=== PATIENT | male | born 1980 | race Caucasian/White ===

== ENCOUNTER → 2021-03-12 10:42 | Outpatient (CLI) | payer OTHER, SELFPAY ==
--- NOTE | 2021-03-12 10:44 | DI.RAD.S_ITS ---
PROCEDURE: XR FOOT RT MIN 3V INDICATIONS: Stepped on nail TECHNIQUE: 3 views of the foot were acquired. COMPARISON: None. FINDINGS: Bones: No fractures or dislocations. No suspicious bony lesions. Midfoot osteoarthritis. Soft tissues: No tibiotalar joint effusion. Achilles tendon appears normal. No radiodense foreign body. IMPRESSION: No fracture. No acute osseous lesion. If symptoms and/or clinical suspicion for pathology persists, further assessment with repeat radiographs (7-10 days) or advanced imaging (e.g. CT, MRI or bone scan) should be considered. Dictated by: Ame Pedroza MD, PhD on 03/12/2021 at 9:57 Approved by: Ame Pedroza MD, PhD on 03/12/2021 at 9:58
== END ==
PROVIDERS: PCP Registered Nurse; Referring Provider Nurse Practitioner Family; Visit Provider Nurse Practitioner Family
DX: S99.921A Unspecified injury of right foot, initial encounter (principal); W45.0XXA Nail entering through skin, initial encounter
CPT/HCPCS: 73630

== ENCOUNTER → 2021-10-30 09:51 | Outpatient (CLI) | payer OTHER, SELFPAY ==
[2021-10-30 11:02] LABS: Add Manual Diff / Slide Review NO; Basophils Absolute Auto 0 /uL (0-100); Basophils Percent Auto 0.5 % (0-2); Eosinophils Absolute Auto 100 /uL (0-450); Eosinophils Percent Auto 1.5 % (2-4); Hematocrit 39.2 % (41-53); Hemoglobin 13.7 g/dL (13.5-17.5); Lymphocytes Absolute Auto 1400 /uL (1100-4500); Mean Corpuscular Hemoglobin 29.6 PG (26-34); Mean Corpuscular Volume 84.6 fL (80-100); Monocytes Absolute Auto 300 /uL (0-900); Monocytes Percent Auto 7.1 % (3-14); Neutrophils Absolute Auto 2700 /uL (1500-7000); Neutrophils Percent Auto 59.9 % (50-75); Platelet Count 168 X10^3/uL (150-400); Red Blood Cell Count 4.64 X10^6/uL (4.5-5.9); Red Cell Distribution Width 12.1 % (11.6-14.8); White Blood Cell Count 4.5 X10^3/uL (4.5-11.0)
[2021-10-30 12:00] LABS: Alanine Aminotransferase 16 IU/L (<50); Albumin 4.4 g/dL (3.5-5.0); Albumin Globulin Ratio 1.6 (1.0-2.8); Alkaline Phosphatase 38 U/L (38-126); Aspartate Aminotransferase 29 IU/L (17-59); Bilirubin Total 0.4 mg/dL (0.2-1.3); Blood Urea Nitrogen 21 mg/dL (9-20); Calcium 8.3 mg/dL (8.4-10.2); Carbon Dioxide 25 mmol/L (22-32); Chloride 106 mmol/L (98-107); Estimated Glomerular Filt Rate > 60 mL/min (>60); Globulin 2.7 g/dL (1.7-4.1); Glucose 96 mg/dL (70-100); HEMOLYSIS < 15 (0-50); Potassium 4.1 mmol/L (3.4-5.1); Sodium 139 mmol/L (137-145); Total Protein 7.1 g/dL (6.3-8.2)
== END ==
PROVIDERS: PCP Family Medicine; Referring Provider Physician Assistant; Visit Provider Physician Assistant
DX: R10.9 Unspecified abdominal pain (principal)
CPT/HCPCS: 36415; 80053; 85025

== ENCOUNTER 2022-10-14 22:18 | Emergency (ER) | payer OTHER, SELFPAY ==
[2022-10-14 22:22] VITALS: BP 119/74; PULSE 69; RESP 16; TEMP 36.4; O2SAT 99; BMI 20.9
--- NOTE | 2022-10-14 22:52 | DI.CT.S_ITS ---
PROCEDURE: CT HEAD/BRAIN WO CON INDICATIONS: syncope TECHNIQUE: Noncontrast 4.5 mm thick angled axial sections acquired from the foramen magnum to the vertex, with coronal and sagittal reformats. For radiation dose reduction, the following was used: automated exposure control, adjustment of mA and/or kV according to patient size. COMPARISON: None. FINDINGS: Image quality: Excellent. CSF spaces: Basal cisterns are patent. No extra-axial fluid collections. Ventricles are normal in size and shape. Brain: No intracranial hemorrhage, mass, or mass effect. Turner-white matter interface appears preserved. Skull and face: Calvarium and visualized facial bones are intact, without suspicious lesions. Sinuses: Visualized sinuses and mastoids are clear. IMPRESSION: 1. No acute intracranial abnormality. Dictated by: Justin Smart M.D. on 10/14/2022 at 23:15 Approved by: Justin Smart M.D. on 10/14/2022 at 23:16
--- NOTE | 2022-10-14 22:52 | DI.CT.S_ITS ---
PROCEDURE: CT CERVICAL SPINE WO CON INDICATIONS: syncope TECHNIQUE: Noncontrast 3 mm thick sections acquired from the skull base to the T4 level. Sagittal and coronal reformats were then constructed. For radiation dose reduction, the following was used: automated exposure control, adjustment of mA and/or kV according to patient size. COMPARISON: None. FINDINGS: Image quality: Excellent. Bones: No fractures or subluxation. There is straightening of the cervical lordosis. There is mild multilevel degenerative disc disease and uncovertebral joint arthropathy in the lower cervical spine. Visualized superior ribs are intact. Soft tissues: Prevertebral soft tissues are normal in thickness. No paravertebral hematomas. No apical pneumothoraces. IMPRESSION: 1. No acute fracture or subluxation. Dictated by: Justin Smart M.D. on 10/14/2022 at 23:17 Approved by: Justin Smart M.D. on 10/14/2022 at 23:18
[2022-10-14 22:57] VITALS: BP 119/72; PULSE 67; RESP 20; O2SAT 98
[2022-10-14 23:07] VITALS: PULSE 61; RESP 12; O2SAT 100
[2022-10-14 23:30] VITALS: PULSE 61; RESP 16; O2SAT 99
[2022-10-14 23:59] VITALS: BP 113/62; PULSE 68; RESP 20; O2SAT 98
[2022-10-15] VITALS: BP 106/55; PULSE 74; RESP 18; O2SAT 99
--- NOTE | 2022-10-15 00:25 | ED_ITS ---
HPI - General Adult General Chief complaint: Syncope Stated complaint: Head inj Time Seen by Provider: 10/15/22 00:24 Source: patient Mode of arrival: Family Vehicle History of Present Illness HPI narrative: 42-year-old gentleman who had a syncopal episode after taking a puff from marijuana vape pen. He fell forward landing on the left side of his forehead on a ceramic doorstop actually breaking the door stop. There was a brief loss of consciousness with retrograde amnesia and increasing fatigue. No actual vomiting. Patient is brought in by his for further evaluation. He complains of mild headache but a time I am talking with him he is at a GCS of 15 and feeling significantly better. He reports no recent fevers, cough, chills. He does note that he has been using and over using marijuana and has been trying to cut back. He has not used any for a number of weeks which is probably why this episode tonight caused the syncope. 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 Mother No problems noted. Social History Smoking Status: Current every day smoker Smoking Status: Current every day smoker Exam Initial Vital Signs Initial Vital Signs: Vital Signs Temperature 97.5 F L 10/14/22 22:22 Pulse Rate 69 10/14/22 22:22 Respiratory Rate 16 10/14/22 22:22 Blood Pressure 119/74 10/14/22 22:22 Pulse Oximetry 99 10/14/22 22:22 Oxygen Delivery Method Room Air 10/14/22 22:22 General: Healthy appearing, mild fatigue. Able to give a complete and coherent history. Well-nourished well-developed HEENT: Moist mucous membranes, normal sclera with reactive pupils, abrasion with contusion to the right forehead with no evidence of skull fracture. Right side of his lip with some minor swelling without actual laceration. Neck: No JVD, supple Respiratory: Lungs are clear to auscultation, no wheezing no rales no rhonchi. Full and symmetrical air movement Cardiac: Regular rate and rhythm no murmurs no bruits Skin: Warm and dry, no rashes Neurologic: Grossly neurologically intact with no obvious asymmetries or abnormalities Extremities: No trauma, well perfused Psych: Cooperative, appropriate insight and affect Course Orders Ordered: ED Orders 10/14/22 22:52 CT cervical spine wo con Stat CT head/brain wo con Stat Vital Signs Vital signs: Vital Signs - 8 hr 10/14/22 22:22 10/14/22 22:57 10/14/22 23:07 Temperature 97.5 F L Pulse Rate 69 67 61 Respiratory Rate 16 20 12 Blood Pressure 119/74 119/72 Pulse Oximetry 99 98 100 Oxygen Delivery Method Room Air Room Air 10/14/22 23:30 10/14/22 23:59 10/14/22 23:59 Temperature Pulse Rate 61 68 Respiratory Rate 16 20 Blood Pressure 113/62 Pulse Oximetry 99 98 Oxygen Delivery Method 10/15/22 00:00 10/15/22 00:00 Temperature Pulse Rate 74 Respiratory Rate 18 Blood Pressure 106/55 L Pulse Oximetry 99 Oxygen Delivery Method Medical Decision Making [facility] Narrative Medical decision making narrative: CC: Fall hitting head, acute problem uncertain prognosis Data collected from: patient, Social determinants of health that may influence the patients condition: Differential considered: Intracranial hemorrhage, skull fracture, cervical spine injury, concussion, contusion, lip contusion Exam documented above, pertinent findings include: Small abrasion with contusion over the forehead and similar finding over the right side of his lip without any laceration and no dental injury Lab Test are not indicated today Imaging studies independently reviewed: CT scan of the head shows no intracranial bleeding or skull fx Ct of the cervical spine shows no acute bony injury Discussion: 42-year-old gentleman who is trying to cut back on his marijuana use had a large puff off of the vape pen became lightheaded fell forward landing on the right side of his forehead with brief loss of consciousness. describes hearing the fall and being quite concerned with the severity. CT scans of the head and neck are unremarkable. We briefly discussed resolution of the contusions. We talked about concussion as well as postconcussion syndrome. It will give him a brief prescription for Zofran to use if he does develop nausea and postconcussion issues. Recommended ibuprofen Tylenol for pain. Reassurance is given he is safe for discharge home Critical Care Time Critical Care Time Attestation: - Emergency Medicine: Utilization of CT for Minor Blunt Head Trauma (Adult) Patient is 18 or older, presenting with minor blunt head trauma. Head CT was ordered by an emergency home care provider for trauma because the patient: [x ] is vomiting\ severe/dangerous mechanism of injury was identified [x ] is experiencing a severe headache [x ] GCS less than 15 (initially, back to 15 by time of exam in the ER) [x ] is intoxicated Discharge Plan Departure Patient Disposition: Home Clinical Impression: Concussion Qualifiers: Encounter type: initial encounter Loss of consciousness presence/duration: with LOC of 30 min or less Qualified Code(s): S06.0X1A - Concussion with loss of consciousness of 30 minutes or less, initial encounter Fall Qualifiers: Encounter type: initial encounter Qualified Code(s): W19.XXXA - Unspecified fall, initial encounter Contusion of head Qualifiers: Encounter type: initial encounter Contusion of head detail: other part of head Qualified Code(s): S00.83XA - Contusion of other part of head, initial encounter Acute strain of neck muscle Qualifiers: Encounter type: initial encounter Qualified Code(s): S16.1XXA - Strain of muscle, fascia and tendon at neck level, initial encounter Instructions: DI for Concussion, DI for Postconcussion Syndrome Activity Restrictions/Additional Instructions: Thank you for coming in today It sounds like he had a very hard fall. Please do expect to have increasing pain and tenderness and also to places over the next 24-48 hours. Fortunately, there is no indication of skull fracture or bleeding inside your brain. You did not sustain any bony injury to your neck. You do have a concussion and may experience some postconcussion symptoms. [facility] read through the attached information to be familiar with some of these symptoms and treatment options available. Using 400 mg of ibuprofen (2 ukzz-glp-dgaztug pills) and 1 Tylenol every 6 hours can be very helpful in controlling pain. If you feeling nauseated with the postconcussion symptoms, Zofran can be helpful, I have electronically transmitted a prescription to [facility] in [place]. If you find that you are getting worse or develop any new symptoms, please feel free to return to the emergency department for further evaluation. Prescriptions: New ondansetron 4 mg tablet,disintegrating 4 mg PO Q8H PRN (Reason: nausea and vomiting) Qty: 14 0RF Referrals: Peterson Smith MD [Primary Care Provider] - Stand Alone Forms: Patient Portal/API
[2022-10-15 00:30] VITALS: BP 114/62; PULSE 72; RESP 18; O2SAT 99
== END 2022-10-15 00:51 | disposition home or self-care (01) ==
PROVIDERS: Emergency Provider Emergency Medicine; PCP Family Medicine
DX: S06.0X1A Concussion with loss of consciousness of 30 minutes or less, initial encounter (principal); R55 Syncope and collapse; S16.1XXA Strain of muscle, fascia and tendon at neck level, initial encounter; W18.30XA Fall on same level, unspecified, initial encounter
CPT/HCPCS: 70450; 72125; 99283; 99284

== ENCOUNTER → 2023-06-13 16:01 | Outpatient (CLI) | payer OTHER, SELFPAY | PROVIDERS: PCP Family Medicine; Visit Provider Physician Assistant | DX: J02.9 Acute pharyngitis, unspecified (principal) | CPT/HCPCS: 87070; 87077; 87147 ==

== ENCOUNTER → 2023-12-26 10:24 | Outpatient (CLI) | payer OTHER, SELFPAY ==
[2023-12-26 10:47] LABS: Appearance Urine UA CLEAR; Bilirubin Urine UA NEGATIVE (NEGATIVE); Color Urine UA YELLOW; Glucose Urine UA NEGATIVE (Negative); Ketones Urine UA NEGATIVE (NEGATIVE); Leukocyte Esterase Urine UA NEGATIVE (NEGATIVE); Nitrite Urine UA NEGATIVE (Negative); Occult Blood Urine UA NEGATIVE (Negative); Protein Urine UA NEGATIVE (Negative); Specific Gravity Urine UA <=1.005 (1.000-1.035); Urobilinogen Urine UA 0.2 E.U./dL (0.2); pH Urine UA 5.5 (4.5-8.0)
[2023-12-26 10:55] LABS: Bacteria Urine None Seen; Culture Indicated Urine Cult Not Indicated; RBC Urine None Seen (0-5/HPF); Squamous Epithelial Cell Urine None Seen (0-5/HPF); Urine Volume 10mL (spun); WBC Urine None Seen (0-5/HPF)
[2023-12-26 12:22] LABS: Urine N gonorrhoeae NOT DETECTED
[2023-12-26 12:31] LABS: Urine Chlamydia NOT DETECTED
[2023-12-27 04:39] LABS: RPR Screen Non Reactive (Non Reactive)
[2023-12-27 07:15] LABS: HSV 2 IGG AB < 0.91 index (0.00-0.90)
[2023-12-29 16:26] LABS: Hepatitis B Surface Antigen NEGATIVE s/c (NEGATIVE)
[2023-12-29 16:38] LABS: HIV 1 & 2 Ab/Ag 4th Gen Combo NEGATIVE (NEGATIVE); Hep C Virus Ab w/Reflex Quant NEGATIVE s/c (NEGATIVE)
== END ==
PROVIDERS: PCP Family Medicine; Referring Provider Nurse Practitioner Family; Visit Provider Nurse Practitioner Family
DX: N48.89 Other specified disorders of penis (principal)
CPT/HCPCS: 36415; 81001; 86592; 86695; 86696; 86803; 87340; 87389; 87491; 87591

== ENCOUNTER → 2024-12-01 08:12 | Outpatient (CLI) | payer OTHER, SELFPAY ==
[2024-12-01 10:19] LABS: Semen Sperm Prescence Post-Vas Absent (ABSENT)
== END ==
PROVIDERS: PCP Family Medicine; Referring Provider Family Medicine; Visit Provider Family Medicine
DX: Z98.52 Vasectomy status (principal)
CPT/HCPCS: 89321